=== PATIENT | male | born 1985 | race Caucasian/White ===

== ENCOUNTER 2016-12-20 17:09 | Emergency (ER) | payer MEDICAID ==
[2016-12-20 17:21] VITALS: BP 139/86; PULSE 80; RESP 16; TEMP 97.7; O2SAT 95
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
== END 2016-12-20 19:02 | disposition home or self-care (01) ==
DX: S43.401A Unspecified sprain of right shoulder joint, initial encounter (principal); V19.9XXA Pedal cyclist (driver) (passenger) injured in unspecified traffic accident, initial encounter; Y92.410 Unspecified street and highway as the place of occurrence of the external cause; Y93.55 Activity, bike riding
CPT/HCPCS: A4565

== ENCOUNTER → 2017-01-24 | Outpatient (CLI) | payer MEDICAID | LOC: FIMAGING 10:13 | PROVIDERS: ATTEND Orthopaedic Surgery | DX: S43.431A Superior glenoid labrum lesion of right shoulder, initial encounter (principal); S43.491A Other sprain of right shoulder joint, initial encounter; M75.51 Bursitis of right shoulder; M75.21 Bicipital tendinitis, right shoulder; Y93.55 Activity, bike riding ==